=== PATIENT | male | born 1975 | race Caucasian/White ===

== ENCOUNTER 2017-09-27 18:38 | Emergency (ER) | payer OTHER ==
[~2017-09-27] VITALS: Ht 165.1 cm; Wt 61.7 kg
[2017-09-27 18:42] VITALS: Ht 165.1 cm; Wt 61.7 kg
[2017-09-28 00:40] VITALS: BP 120/77
== END 2017-09-28 01:01 | disposition home or self-care (01) ==
LOC: ED 18:38
DX: S05.11XA Contusion of eyeball and orbital tissues, right eye, initial encounter (principal); S20.219A Contusion of unspecified front wall of thorax, initial encounter; S10.93XA Contusion of unspecified part of neck, initial encounter; V49.59XA Passenger injured in collision with other motor vehicles in traffic accident, initial encounter; W22.10XA Striking against or struck by unspecified automobile airbag, initial encounter; Y93.89 Activity, other specified; Y99.8 Other external cause status; Y92.89 Other specified places as the place of occurrence of the external cause